=== PATIENT | male | born 1980 | race African-American/Black ===

== ENCOUNTER 2024-03-28 02:08 | Emergency (ER) | payer SELFPAY ==
[2024-03-28 02:53] LABS: #Basophils Less than 0.03 10x3/uL (0.0-0.2); %Basophils 0.5 % (0.0-1.0); %Eosinophils 0.8 % (0.0-10.0); %Lymphocytes 29.2 % (21.0-51.0); %Monocytes 15.4 % (0.0-10.0); %Neutrophils 53.8 % (42.0-75.0); Hematocrit 46.5 % (42.0-52.0); Hemoglobin 15.4 g/dL (14.0-18.0); Mean Corpuscular HGB CONC 33.1 g/dL (32.0-36.0); Mean Corpuscular Volume 93.6 fL (78.0-98.0); Mean Platelet Volume 11.2 fL (7.4-10.4); Platelet Count 237 10x3/uL (130-400); RBC Distribution Width 14.5 % (11.5-14.5); Red Blood Cell (RBC) Count 4.97 mill/uL (4.70-6.10)
[2024-03-28 03:13] LABS: ALT (SGPT) 13 U/L (8-55); AST (SGOT) 18 U/L (5-34); Albumin 4.5 g/dL (3.5-5.0); Alkaline Phosphatase 56 U/L (40-110); Anion Gap 15 mmol/L (10-20); BUN (Urea Nitrogen) 9 mg/dL (8.9-20.6); Bilirubin, Total 0.4 mg/dL (0.2-1.2); Calc. Creatinine Clearance 0 mL/min (70-130); Calcium 9.4 mg/dL (7.8-10.44); Carbon Dioxide 24 mmol/L (22-29); Chloride 105 mmol/L (98-107); Estimated GFR 68; Globulin 3.3 g/dL (2.4-3.5); Glucose 91 mg/dL (70-105); Potassium 3.6 mmol/L (3.5-5.1); Protein, Total 7.8 g/dL (6.0-8.3); Sodium 140 mmol/L (136-145)
[2024-03-28 03:50] LABS: Acetaminophen Less than 10 mcg/mL (10.0-30.0); Alcohol 105.4 mg/dL (Less than 10); CK (CPK) 213 U/L (30-200); Lipase 21 U/L (8-78); Salicylate Less than 8.0 mg/dL (15.0-30.0)
== END 2024-03-28 04:27 ==
LOC: ERS 02:08
DX: T50.911A Poisoning by multiple unspecified drugs, medicaments and biological substances, accidental (unintentional), initial encounter (principal); F10.129 Alcohol abuse with intoxication, unspecified
CPT/HCPCS: 80053; 80307; 82550; 83690; 84443; 85025; 93005

== ENCOUNTER 2024-05-27 16:10 | Emergency (ER) | payer SELFPAY | END 2024-05-27 20:28 | disposition home or self-care (01) | LOC: ERS 16:10 | DX: M79.672 Pain in left foot (principal); M79.671 Pain in right foot; R20.2 Paresthesia of skin; F17.290 Nicotine dependence, other tobacco product, uncomplicated | CPT/HCPCS: 93970 ==

== ENCOUNTER 2024-07-14 15:14 | Emergency (ER) | payer SELFPAY ==
[2024-07-14] MEDS ORDERED: Ibuprofen 800 MG TAB ONE (16:46)
== END 2024-07-14 17:03 | disposition home or self-care (01) ==
LOC: ERS 15:14
DX: S61.012A Laceration without foreign body of left thumb without damage to nail, initial encounter (principal); S61.412A Laceration without foreign body of left hand, initial encounter; F17.290 Nicotine dependence, other tobacco product, uncomplicated; W25.XXXA Contact with sharp glass, initial encounter
CPT/HCPCS: 99282

== ENCOUNTER 2024-07-17 14:26 | Emergency (ER) | payer SELFPAY ==
[2024-07-17 15:31] LABS: #Basophils 0.03 10x3/uL (0.0-0.2); %Basophils 0.6 % (0.0-1.0); %Eosinophils 3.8 % (0.0-10.0); %Lymphocytes 23.8 % (21.0-51.0); %Monocytes 14.3 % (0.0-10.0); %Neutrophils 57.1 % (42.0-75.0); Hematocrit 41.6 % (42.0-52.0); Hemoglobin 14.1 g/dL (14.0-18.0); Mean Corpuscular HGB CONC 33.9 g/dL (32.0-36.0); Mean Corpuscular Hemoglobin 31.3 pg (27.0-31.0); Mean Corpuscular Volume 92.4 fL (78.0-98.0); Mean Platelet Volume 9.3 fL (7.4-10.4); Platelet Count 262 10x3/uL (130-400); RBC Distribution Width 13.5 % (11.5-14.5)
[2024-07-17 16:07] LABS: ALT (SGPT) 33 U/L (8-55); AST (SGOT) 47 U/L (5-34); Albumin 3.7 g/dL (3.5-5.0); Alkaline Phosphatase 44 U/L (40-110); Anion Gap 12 mmol/L (10-20); BUN (Urea Nitrogen) 11 mg/dL (8.9-20.6); Bilirubin, Total 0.2 mg/dL (0.2-1.2); Calc. Creatinine Clearance 0 mL/min (70-130); Calcium 8.8 mg/dL (7.8-10.44); Carbon Dioxide 27 mmol/L (22-29); Chloride 102 mmol/L (98-107); Estimated GFR 98; Globulin 2.5 g/dL (2.4-3.5); Glucose 121 mg/dL (70-105); Potassium 3.8 mmol/L (3.5-5.1); Protein, Total 6.2 g/dL (6.0-8.3); Sodium 137 mmol/L (136-145)
[2024-07-17 16:16] LABS: Troponin I Less than 0.010 ng/mL (< 0.028)
[2024-07-17] MEDS ORDERED: Meclizine HCl 25 MG TAB ONE (17:36)
== END 2024-07-17 18:25 | disposition home or self-care (01) ==
LOC: ERS 14:26
DX: R42 Dizziness and giddiness (principal); R29.700 NIHSS score 0; F17.290 Nicotine dependence, other tobacco product, uncomplicated; Z55.6 Problems related to health literacy; Z75.3 Unavailability and inaccessibility of health-care facilities
CPT/HCPCS: 36415; 70450; 80053; 84484; 85025; 93005